=== PATIENT | female | born 1995 | race Asian ===

== ENCOUNTER 2018-02-02 20:21 | Emergency (ER) | payer OTHER ==
--- NOTE | 2018-02-02 20:45 | ED ---
Neurological HPI - HPI Summary HPI Summary: A 23 year old female brought in by ambulance presents to the ED c/o a seizure at 19:50 02/02/2018. She states that a friend witnessed her seizure and claims that it lasted 2-3 minutes. She has a Hx of seizures. She is taking 750 mg Keppra BID. She said that Amanda referred her to a neurologist in [place], she doesn't remember who, where she had an EEG that showed abnormalities causing her seizures. She denies fever. Her LNMP was about a month ago but she states it is due in 5 days. - History of Current Complaint Stated Complaint: SEIZURE Time Seen by Provider: 02/02/18 20:27 Hx Obtained From: Patient Onset/Duration: Sudden Onset, Resolved Current Severity: Moderate Seizure Severity: Moderate - Allergy/Home Medications Allergies/Adverse Reactions: Allergies Allergy/AdvReac Type Severity Reaction Status Date / Time No Known Allergies Allergy Verified 06/16/15 10:01 PMH/Surg Hx/FS Hx/Imm Hx Endocrine/Hematology History: Denies: Hx Diabetes Cardiovascular History: Denies: Hx Hypertension, Hx Pacemaker/ICD GI History: Reports: Hx Gastroesophageal Reflux Disease History: Denies: Hx Dialysis, Hx Renal Disease Sensory History: Denies: Hx Hearing Aid Psychiatric History: Denies: Hx Panic Disorder - Surgical History Surgery Procedure, Year, and Place: BROKEN RIGHT ARM-PLATE SCREWS - Family History Known Family History: Negative: Cardiac Disease, Hypertension, Diabetes - Social History Alcohol Use: None Substance Use Type: Reports: None Smoking Status (MU): Never Smoked Tobacco Review of Systems Negative: Fever Neurological: Other - Positive: seizure All Other Systems Reviewed And Are Negative: Yes Physical Exam - Summary Physical Exam Summary: VITAL SIGNS: Reviewed. GENERAL: Patient is a well-developed and nourished FEMALE who is lying comfortable in the stretcher.Patient is not in any acute respiratory distress. HEAD AND FACE: No signs of trauma. No ecchymosis, hematomas or skull depressions. No sinus tenderness. EYES: PERRLA, EOMI x 2, No injected conjunctiva, no nystagmus. No photophobia. EARS: Hearing grossly intact. Ear canals and tympanic membranes are within normal limits. MOUTH: Oropharynx within normal limits. NECK: Supple, trachea is midline, no adenopathy, no JVD, no carotid bruit, no c- spine tenderness, neck with full ROM. No meningeal signs, no Kernig's or brudzinskis signs. CHEST: Symmetric, no tenderness at palpation LUNGS: Clear to auscultation bilaterally. No wheezing or crackles. CVS: Regular rate and rhythm, S1 and S2 present, no murmurs or gallops appreciated. ABDOMEN: Soft, non-tender. No signs of distention. No rebound no guarding, and no masses palpated. Bowel sounds are normal. EXTREMITIES: FROM in all major joints, no edema, no cyanosis or clubbing. NEURO: Alert and oriented x 3. No acute neurological deficits. Speech is normal and follows commands. SKIN: Dry and warm GCS: 15 Triage Information Reviewed: Yes Vital Signs Reviewed: Yes Diagnostics - Laboratory Result Diagrams: 02/02/18 20:39 02/02/18 20:39 Lab Statement: Any lab studies that have been ordered have been reviewed, and results considered in the medical decision making process. - Radiology CXR Radiology Interpretation Completed By: ED Physician - No acute cardiopulmonary pathology. Pending official radiology report. - EKG 21:04 Cardiac Rate: NL - 86 bpm EKG Rhythm: Sinus Rhythm Summary of EKG Findings: No ST elevation Re-Evaluation - Re-Evaluation First Eval Re-Evaluation Time: 21:50 Change: Unchanged Comment: Gave patient discharge and follow up instructions Course/Dx - Course Assessment/Plan: Patient is a 23-year-old female who presents to the emergency department with a chief complaint of seizure. She reports that she had a tonic- clonic seizure lasting for approximately 2 minutes. Patient has past medical history significant for seizures. The patient is taking Keppra 750 mg twice a day. In the ER the patient is alert and oriented 3. The patient is not having any postictal symptoms. Patient also reports that she takes medication every day. Patient has no other complaints. Blood work without any significant abnormality. The patient is resting comfortable. I discussed the case with Dr. Castillo from neurology and he recommends to increase the bus from 750 twice a day for 750 in the morning and 1000 mg at nighttime. The patient is to make an appointment with neurology next week. I discussed all the findings and test results with the patient. Patient was instructed to return to the emergency room immediately if any of the symptoms return or worsens. Plan of care was discussed with the patient and understands and agrees. All questions were answered at patient satisfaction. There were no further complaints or concerns. Lung exam before discharge: CTA B/L. Good air exchange. No wheezing or crackles heard. CVS: S1 and S2 present. No murmurs appreciated. Patient is alert and oriented x 3. Patient is hemodynamically stable. Patient will be discharged home with follow up PCP in the next 2-3 days - Differential Dx Differential Diagnoses Neuro: Positive: Seizure Disorder - Diagnoses Provider Diagnoses: Seizure - Physician Notifications Discussed Care Of Patient With: Geovanny Castillo Time Discussed With Above Provider: 21:45 Instructed by Provider To: Other - Dr. Castillo suggested changing her dosage of keppra from 750 mg BID to 750mg in the morning and 1000 mg at night. He wants the patient to make a follow up appointment with him. Discharge - Sign-Out/Discharge Documenting (check all that apply): Patient Departure - Discharge Plan Condition: Stable Disposition: HOME Prescriptions: levETIRAcetam [Keppra] 250 mg PO QPM #20 tablet Patient Education Materials: Recurrent Seizures in Adults (ED) Referrals: [facility] [Outside] - 3 Days Geovanny Castillo MD [Medical Doctor] - 3 Days Additional Instructions: Dr. Castillo from neurology recommends for the patient to take Keppra 750 mg in the morning and 1000 mg at night. The patient should make an appointment with neurology. Return to the ED if you experience any worsening or new symptoms. - Billing Disposition and Condition Condition: STABLE Disposition: Home - Attestation Statements Document Initiated by Scribe: Yes Documenting Scribe: Jaspal Garza Provider For Whom Griffin is Documenting (Include Credential): Konstantin Gomez MD Scribe Attestation: Jaspal Thomas scribed for Konstantin Gomez MD on 02/03/18 at 0842. Scribe Documentation Reviewed: Yes Provider Attestation: The documentation as recorded by the Jaspal moya accurately reflects the service I personally performed and the decisions made by me, Konstantin Gomez MD Attestations User Type: Provider with Scribe Provider Attestation: The documentation recorded by the griffin accurately reflects the service I personally performed and the decisions made by me.
[2018-02-02 21:01] LABS: ABS Basophils 0 10^3/ul (0-0.2); ABS Eosinophils 0.3 10^3/ul (0-0.6); ABS Monocytes 0.3 10^3/ul (0-0.8); ABS Neutrophils 3.1 10^3/ul (1.5-7.7); ABS Nucleated RBC 0 10^3/ul; Eosinophil % 5.1 % (0-6); Hematocrit 38 % (35-47); Hemoglobin 12.6 g/dl (12.0-16.0); Lymphocyte % 34.5 % (25-47); Mean Corpuscular HGB Conc 33 g/dl (31-36); Mean Corpuscular Hemoglobin 28 pg (27-31); Mean Corpuscular Volume 85 fL (80-97); Mean Platelet Volume 7.7 fL (7.4-10.4); Nucleated Red Blood Cells % 0.1; Platelet Count 227 10^3/ul (150-450); Red Blood Count 4.48 10^6/ul (4.00-5.40); Red Cell Distribution Width 15 % (10.5-15); White Blood Count 5.8 10^3/ul (3.5-10.8)
[2018-02-02 21:29] LABS: EGFR Non-African American 117.1 (>60)
[2018-02-02 21:35] LABS: INR 0.93 (0.77-1.02)
[2018-02-02] MEDS ORDERED: Ondansetron ODT TAB* 4 MG ONE (21:50)
[2018-02-02] MEDS ORDERED: Ondansetron ODT TAB* 4 MG PO ONE (21:52)
[2018-02-02 22:06] LABS: Urine Appearance Cloudy; Urine Blood Negative (Negative); Urine Color Yellow; Urine Ketones Trace (Negative); Urine Protein 2+(100 mg/dL) (Negative); Urine Red Blood Cell Trace(0-2/hpf) (Absent); Urine Specific Gravity 1.025 (1.010-1.030); Urine Urobilinogen Negative (Negative); Urine White Blood Cell Trace(0-5/hpf) (Absent)
[2018-02-02 22:23] VITALS: BP 115/74
== END 2018-02-02 22:10 | disposition home or self-care (01) ==
LOC: ED 20:21
DX: G40.909 Epilepsy, unspecified, not intractable, without status epilepticus (principal)
CPT/HCPCS: 36415; 71045; 80053; 80177; 80320; 81003; 81015; 82550; 83605; 83735; 84443; 84702; 85025; 85610; 87086; 93005; 99282; A9270-GY; G0480